=== PATIENT | female | born 1945 | race Caucasian/White ===

== ENCOUNTER → 2017-01-01 | Outpatient (CLI) | payer MEDICARE, OTHER ==
--- NOTE | ~2017-01-01 | US128 ---
[id number] [facility] [address]. [place], [place] [address] [id number] O MR#: [id number] [facility] #: [id number] NAME: GORDON ROCHE : 1945 SEX: F STUDY DATE/TIME: 01/01/2017 11:15 UNIT: CGUS ROOM: STUDY DESCRIPTION: US Thyroid Attending Physician: Yonis Huber M.D. Referring Physician: Yonis Huber M.D. Ordering Physician: Yonis Huber M.D. Primary Care Physician: Yonis Huber M.D. MEDICAL IMAGING REPORT This report is preliminary unless electronic signature is present EXAM Thyroid ultrasound, 01/01/2017 HISTORY Thyroid nodules. Physician's history states nodular goiter. COMPARISON PET/CT 01/01/2017. CT chest without contrast 12/17/2016. No previous thyroid ultrasound at this institution for comparison. FINDINGS The right thyroid lobe measures 2.1 x 2.7 x 5.1 cm. The left thyroid lobe measures 2.6 x 3.1 x 4.9 cm. The isthmus measures approximately 7.0 mm thickness. The thyroid parenchyma is heterogeneous and contains scattered areas of coarse calcification. A hypoechoic circumscribed predominantly dominant solid nodule within the right mid thyroid lobe measures 5.7 x 3.9 x 5.8 mm. A circumscribed isoechoic solid nodule within hypoechoic halo is located within the right [id number] thyroid pole measuring 1.2 x 1.0 x 1.1 cm without hypervascularity. A hypoechoic solid-appearing nodule with eccentric thin calcification is seen within the right lower thyroid pole measuring 4.9 x 8.1 x 5.7 mm. An index nodule within the left [id number] thyroid pole is solid, near isoechoic with thin hypoechoic halo measuring 1.0 x 0.9 x 1.2 cm. An index near isoechoic nodule, solid with hypoechoic halo, is located in the left upper thyroid lobe measuring 6.4 x 3.7 x 5.9 mm. A hypoechoic solid-appearing nodule within the left upper thyroid pole laterally measures 3.2 x 3.9 x 3.0 mm. There is extensive nodularity or pseudo nodularity throughout both thyroid lobes, and the thyroid parenchyma appears slightly hypervascular which is nonspecific but can be seen in cases of thyroiditis. IMPRESSION 1. Findings in keeping with the appearance of multinodular goiter as described. The thyroid parenchyma is coarse, heterogeneous with multinodularity and/or pseudo nodularity. Hypervascularity is thought to be present within the thyroid parenchyma which is nonspecific but can be indicative of thyroiditis. Please correlate with laboratory findings. 2. Dominant nodule located within right fyd-[id number]-[id number] thyroid pole measuring 1.2 cm. Dictated by... Chen Barrios M.D. THIS IS AN ELECTRONICALLY VERIFIED REPORT Chen Barrios M.D. at 01/03/2017 6:12 AM EV/gilberto TD: 01/02/2017 08:27 JOB #: [id number] MEDICAL IMAGING REPORT Page 1 of 1 COPY
== END | disposition home or self-care (01) ==
LOC: CGUS 10:00
DX: E04.2 Nontoxic multinodular goiter (principal)
CPT/HCPCS: 76536